=== PATIENT | female | born 1980 | race African-American/Black ===

== ENCOUNTER 2023-01-10 09:40 | Emergency (ER) | payer MEDICAID, OTHER ==
[~2023-01-10] VITALS: Ht 167.6 cm; Wt 65.4 kg
[2023-01-10 09:50] VITALS: BP 185/82; PULSE 80; RESP 14; O2SAT 100
== END 2023-01-10 15:30 | disposition left against medical advice (07) ==
LOC: ER 09:40
DX: I10 Essential (primary) hypertension (principal); Z76.0 Encounter for issue of repeat prescription; Z53.21 Procedure and treatment not carried out due to patient leaving prior to being seen by health care provider

== ENCOUNTER 2023-01-31 12:34 | Emergency (ER) | payer MEDICAID ==
[~2023-01-31] VITALS: Ht 167.6 cm; Wt 72.0 kg
[2023-01-31 13:46] LABS: Urine Bacteria FEW /hpf (None Seen); Urine Blood 1+ /uL (Negative); Urine Clarity Clear (Clear); Urine Color Colorless (Yellow); Urine Protein, UAD Negative (Negative); Urine Specific Gravity 1.012 (1.001-1.035); Urine Urobilinogen Normal (Negative); Urine WBC 1 /hpf (0 - 5); Urine pH 7.5 (5.0-8.0)
[2023-01-31 13:57] LABS: Basophils # (auto) 0 10 ^3/uL (0-0.2); Basophils % (auto) 0.6 % (0.0-2.0); Eosinophils # (auto) 0 10 ^3/uL (0-0.8); Eosinophils % (auto) 0.6 % (0.0-7.0); Hematocrit 41.2 % (36.0-46.0); Hemoglobin 13.6 g/dL (12.2-16.2); Lymphocytes # (auto) 1.4 10 ^3/uL (0.4-5.4); Lymphocytes % (auto) 34.1 % (10.0-50.0); Mean Corpuscular Hemoglobin 33.2 pg (28.0-32.0); Mean Corpuscular Hgb Conc. 33.1 g/dL (32.0-36.0); Mean Corpuscular Volume 100.4 fL (80.0-100.0); Monocytes # (auto) 0.2 10 ^3/uL (0-1.3); Monocytes % (auto) 4.6 % (0.0-12.0); Neutrophils # (auto) 2.5 10 ^3/uL (1.6-8.6); Neutrophils % (auto) 60.1 % (37.0-80.0); Nucleated Red Blood Cells % 0.1 %; Red Cell Distribution Width 13.7 % (11.8-14.3); White Blood Cell 4.2 10^3/uL (4.4-10.8)
[2023-01-31 14:01] LABS: Alanine Aminotransferase 50 U/L (7-40); Albumin 4.6 g/dL (3.2-4.8); Alkaline Phosphatase 83 U/L (46-116); Anion Gap 11 (5-15); Aspartate Aminotransferase 53 U/L (13-40); Calcium 9.5 mg/dL (8.5-10.1); Carbon Dioxide 24 mmol/L (20-30); Chloride 102 mmol/L (98-107); Glucose 79 mg/dL (74-106); Potassium 4.5 mmol/L (3.5-5.1); Sodium 137 mmol/L (136-145)
[2023-01-31 14:02] LABS: Bilirubin, Total 1.7 mg/dL (0.2-1.0); Total Protein 7.2 g/dL (5.7-8.2)
[2023-01-31 14:10] LABS: Blood Urea Nitrogen 10 mg/dL (9-23)
[2023-01-31] MEDS ORDERED: cloNIDine HCL 0.1 MG TAB PO ONE (14:45)
[2023-01-31] MEDS ORDERED: MECLIZINE HCL 25 MG TAB PO ONE (14:45)
[2023-01-31] MEDS ORDERED: MECL1TAB42 PO ×3 (15:56→16:35)
[2023-01-31 16:28] VITALS: BP 125/90; PULSE 88; RESP 16; TEMP 97.8; O2SAT 99
== END 2023-01-31 16:35 | disposition home or self-care (01) ==
LOC: ER 12:34
DX: I10 Essential (primary) hypertension (principal); R42 Dizziness and giddiness
CPT/HCPCS: 36415; 70450; 80053; 81001; 84484; 85025; 93005; 99284; J8597